=== PATIENT | female | born 1955 | race Caucasian/White ===

== ENCOUNTER 2017-07-06 05:50 | Day surgery (SDC) | payer OTHER ==
[~2017-07-06] VITALS: Ht 160 cm; Wt 72.6 kg
[~2017-07-06 05:50] MED LIST: DULOXETINE HCL30 MG PO; ESTRADIOL1 EAC6 TD; NADOLOL20 MG PO; OMEPRAZOLE20 MG PO; SUDOGEST60 MG PO; TYLENOL WITH C1 EACH PO; XANAX0.5 MG PO
--- NOTE | 2017-07-06 07:20 | NUR ---
07/06/17 0719 Abby Gamino 0716 - PT ARRIVED TO PACU. AIRWAY HELD. 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 "NO ACTION NEEDED AT THIS TIME."
== END 2017-07-06 08:10 | disposition home or self-care (01) ==
LOC: OPS 05:50 → DS 05:50 → OPS 06:45 → DS 08:30
PROVIDERS: Orthopaedic Surgery
PROC: 0RSJ0ZZ Reposition Right Shoulder Joint, Open Approach (ICD-10-PCS; principal; 2017-07-06 06:45)
DX: M75.01 Adhesive capsulitis of right shoulder (principal); I10 Essential (primary) hypertension; Z88.2 Allergy status to sulfonamides; Z88.8 Allergy status to other drugs, medicaments and biological substances
CPT/HCPCS: 01620; 64415; 76942; J0735; J2704; J3301; J7120

== ENCOUNTER 2022-11-04 06:25 | Day surgery (SDC) | payer MEDICARE ==
[~2022-11-04] VITALS: Ht 160 cm; Wt 73.5 kg
[~2022-11-04 06:25] MED LIST changes: +CYMBALTA30 MG PO; +TRAZODONE HCL100 MG PO
[2022-11-04] MEDS ORDERED: IBUPROFEN200 M1 PO (06:55)
[2022-11-04] MEDS ORDERED: ROSUVASTATIN CA10 MG PO (06:59)
[2022-11-04] MEDS ORDERED: BUSPIRONE HCL7.5 MG PO (06:59)
--- NOTE | 2022-11-04 08:25 | NUR ---
11/04/22 0825 Antoinette Carson 0863 PATIENT ARRIVES TO PACU AWAKE BUT DROWSY. DENIES PAIN OR NAUSEA. RESP EVEN AND UNLABORED, NC AT 3 LITERS, TURNED OFF. SLEEPING WHEN NOT STIMULATED.
--- NOTE | 2022-11-07 08:08 | OR ---
[facility] [address] [place], [place] [address] Signed DATE OF OPERATION: 11/04/2022 SURGEON: Mary Umana MD PREOPERATIVE DIAGNOSES: 1. Gastroesophageal reflux, symptoms generally well controlled. 2. History of diverticulosis. Last colonoscopy 2011. POSTOPERATIVE DIAGNOSES: 1. Mild distal esophagitis without sign of hiatal hernia. 2. Sigmoid diverticulosis. 3. Polyps x2 (proximal ascending colon and sigmoid). PROCEDURES: 1. Esophagogastroduodenoscopy with biopsy. 2. Total colonoscopy to the cecum with cold morcellation, excision of polyp of proximal ascending colon and sigmoid. ANESTHESIA: Intravenous sedation, fentanyl 150 mcg and Versed 9 mg (total). INDICATION: This 67-year-old white woman is a patient Dr. Ramirez and referred for colonoscopy for screening as well as upper endoscopy for symptoms of reflux. She has been treated with PPI medication persistently and doing well with it generally speaking. Previous upper endoscopy confirmed small hiatal hernia and distal esophagitis. She additionally is noted on colonoscopy in the past to have diverticulosis. She is admitted to undergo upper endoscopy and colonoscopy. She understands the risk of bleeding, infection, perforation, and other unforeseen complications. FINDINGS: Upper endoscopy was relatively normal. There is mild distal esophagitis, but no evidence of Guillermo epithelium. The flap valve appeared good. I did not see hiatal hernia, though it was documented from the past. On colonoscopy, the prep was good and complete colonoscopy was undertaken to the cecum. There were numerous diverticula of the sigmoid colon. There were two polyps, one in the proximal ascending colon, the other in the sigmoid, both were excised. DESCRIPTION OF PROCEDURE: Electronically Signed By: MARY UMANA MD 11/07/22 0808 PATIENT NAME: CHANEL SINGH OPERATIVE REPORT DATE OF : 57 REPORT #: [id number] PHYSICIAN: MARY UMANA MD PCP: DION RAMIREZ MD REPORT IS CONFIDENTIAL AND NOT TO BE RELEASED WITHOUT AUTHORIZATION [facility] [address] [place], [place] [address] Signed The patient was brought to the endoscopy suite and given topical lidocaine, hypopharyngeal anesthesia and placed in the lateral decubitus position. She was given intravenous sedation to the point of slurred speech and nystagmus with full cardiopulmonary monitoring. A bite block was placed. An Olympus video upper endoscope was passed in the hypopharynx. The vocal cords were visualized as normal. Scope was advanced to the esophagus, throughout its length it was normal though the distal portion had mild area of hyperkeratosis; there was no evidence of Guillermo epithelium or a true stricture. The scope was passed to the stomach, which was insufflated with air. Rugal folds appeared normal as did the antrum. The pylorus was normal. Scope was passed through into the duodenum, which was normal. Biopsies taken there to assess for celiac disease. The scope was withdrawn and biopsies then taken of the antrum and proximal stomach for both USMAN and pathologic testing. Retroflexed view showed a surprisingly good flap valve considering documentation in the past of small hiatal hernia. The scope was withdrawn to the distal esophagus and the hyperkeratotic area appeared benign, but was biopsied nevertheless. Scope was withdrawn and midesophageal biopsies obtained as well. The scope was then removed. Plans were made for colonoscopy. Digital rectal examination was normal. Olympus video colonoscope was passed in the rectum and manipulated throughout the colon ultimately intubating the cecum itself. The ileocecal valve and appendiceal orifice were well identified and normal. The scope was withdrawn and in the proximal ascending colon there was a small sessile polyp, almost certainly adenomatous. It was excised with cold morcellation technique. Complete excision was noted. The scope was withdrawn and examination found to be normal until the left colon where diverticula were once again noted. In the sigmoid, there was a small polyp, possibly hyperplastic, but more likely adenomatous. It was excised with cold morcellation technique as well. Further withdrawal allowed for retroflexed view of the rectum, which was normal. Scope was removed and the patient was taken to the recovery room in good condition. CONCLUDING DIAGNOSES: 1. Clinical gastroesophageal reflux with mild hyperkeratosis of the distal esophagus (biopsied). 2. Diverticulosis of colon with two small polyps. PLAN: Recommend repeat colonoscopy in 5 years based on polyps. Would recommend continued use of Prilosec on a daily basis. Safety of this approach is well documented (Barbi 2020). Electronically Signed By: MARY UMANA MD 11/07/22 0808 PATIENT NAME: CHANEL SINGH OPERATIVE REPORT DATE OF : 57 REPORT #: [id number] PHYSICIAN: MARY UMANA MD PCP: DION RAMIREZ MD REPORT IS CONFIDENTIAL AND NOT TO BE RELEASED WITHOUT AUTHORIZATION [address] [address] Signed Mary Umana MD JM/MODL /[id number] cc: Dion Ramirez MD Copies: DION RAMIREZ MD ~ Electronically Signed By: MARY UMANA MD 11/07/22 0808 PATIENT NAME: CHANEL SINGH OPERATIVE REPORT DATE OF : 57 REPORT #: [id number] PHYSICIAN: MARY UMANA MD PCP: DION RAMIREZ MD REPORT IS CONFIDENTIAL AND NOT TO BE RELEASED WITHOUT AUTHORIZATION
== END 2022-11-04 09:30 | disposition home or self-care (01) ==
LOC: DS 06:25 → OPS 06:25 → DS 07:30 → OPS 09:30
PROVIDERS: ATTEND Surgery
PROC: 0DBN8ZZ Excision of Sigmoid Colon, Via Natural or Artificial Opening Endoscopic (ICD-10-PCS; 2022-11-04)
PROC: 0DB68ZX Excision of Stomach, Via Natural or Artificial Opening Endoscopic, Diagnostic (ICD-10-PCS; principal; 2022-11-04 07:30)
PROC: 0DBK8ZZ Excision of Ascending Colon, Via Natural or Artificial Opening Endoscopic (ICD-10-PCS; 2022-11-04 07:30)
DX: Z12.11 Encounter for screening for malignant neoplasm of colon (principal); K59.09 Other constipation; K21.00 Gastro-esophageal reflux disease with esophagitis, without bleeding; K57.30 Diverticulosis of large intestine without perforation or abscess without bleeding; D12.2 Benign neoplasm of ascending colon; K63.5 Polyp of colon; K20.90 Esophagitis, unspecified without bleeding
CPT/HCPCS: 99153; G0500; J2250; J3010; J7121

== ENCOUNTER 2023-05-23 08:30 | Day surgery (SDC) | payer MEDICARE ==
[2023-05-18 10:19] VITALS: BP 125/74
[~2023-05-23] VITALS: Ht 160 cm; Wt 75.0 kg
[2023-05-23 08:18] VITALS: BP 124/48
[~2023-05-23 08:30] MED LIST changes: +BUSPIRONE HCL7.5 MG PO; +CLARITIN10 M2 PO; +IBUPROFEN200 M1 PO; +PROPRANOLOL HCL20 MG PO; +ROSUVASTATIN CA10 MG PO
--- NOTE | 2023-05-23 10:35 | NUR ---
05/23/23 Dionte5 Gina Peterson 1015- PT ARRIVES TO UNIT VIA STRETCHER FROM OR. PT RESPONSIVE TO TACTILE STIMULI AT THIS TIME. PT REPORTS NO PAIN OR NAUSEA AT THIS TIME. PT ON RA W/O2 >90% VIA PULSE OX AT THIS TIME. PT RESPIRATIONS ARE EVEN AND UNLABORED, NO SIGNS OF DISTRESS. MOUNA MARK AT BEDSIDE FOR REPORT. 1019- DR. CARRANZA AT BEDSIDE AT THIS TIME DISCUSSING PROCEDURE WITH PT.
[2023-05-23 10:50] VITALS: BP 91/46
--- NOTE | 2023-05-23 10:54 | NUR ---
1045: PT BACK TO DS RM 3 FROM PACU VIA STRETCHER, A&O X3. PT DENIES PAIN AND RATES 0/10 AND TOLERATES SIPS OF WATER. DC CRITERIA EXPLAINED, CALL LIGHT WITHIN REACH. WARM BLANKET AND JELLO PROVIDED.
[2023-05-23 11:50] VITALS: BP 116/46
--- NOTE | 2023-05-23 11:52 | NUR ---
PT RESTING IN BED WITH EYES CLOSED ON ENTRANCE, WAKES WITH VERBAL STIMULATION. PT TOLERATES PO WITH NO NAUSEA. DENIES URGE TO VOID AT THIS TIME. CALL LIGHT WITHIN REACH.
--- NOTE | 2023-05-23 14:19 | OR ---
[facility] [address] [place], [place] [address] Signed DATE OF OPERATION: 05/23/2023 SURGEON: Joby Carranza MD PREOPERATIVE DIAGNOSIS: Chronic left maxillary sinusitis. POSTOPERATIVE DIAGNOSIS: Chronic left maxillary sinusitis. PROCEDURE: Left maxillary sinusotomy. 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 PREOPERATIVE HISTORY: Ms. Chow is a 67-year-old lady with a long history of sinus problems. She has had multiple operations in the past. Most recently, left facial pain, unresponsive to appropriate medications including multiple antibiotics. The CAT scan has shown opacification of the left maxillary sinus with closure of the left nasal antral window. All other sinuses were clear on the CT scan. She was taken to the operating room for the above-mentioned procedures. OPERATIVE PROCEDURE AND FINDINGS: After informed consent, the patient was taken to the operating room, placed in the supine position where general LMA anesthesia was induced. The patient and procedure were verified. The patient received preoperative intranasal oxymetazoline and intravenous Ancef. Preop CT was reviewed throughout. The nasal cavity was inspected with the headlight and speculum. The left nasal antral window was made with a curved ring curette, widened and purulent material obtained. The nasal antral window was widened with the Raúl. All material removed from the maxillary sinus with curette and suctioning. Minimal bleeding stopped afterwards. Pharynx was suctioned clear of blood and secretions. No packing was placed. The patient was awakened, extubated, transported to recovery in good condition. No complications. BLOOD LOSS: Minimal. SPECIMEN: Electronically Signed By: JOBY CARRANZA MD 05/23/23 1419 PATIENT NAME: CHANEL CHOW OPERATIVE REPORT DATE OF : 57 REPORT #: [id number] PHYSICIAN: JOBY CARRANZA MD PCP: WILLIE MUNIZ MD REPORT IS CONFIDENTIAL AND NOT TO BE RELEASED WITHOUT AUTHORIZATION [address] [place], [place] [address] Signed Left maxillary sinus contents to pathology. DRAINS: No drains. PACKING: No packing. Joby Carranza MD GC/THANG /[id number] Copies: ~ Electronically Signed By: JOBY CARRANZA MD 05/23/23 1419 PATIENT NAME: CHANEL CHOW OPERATIVE REPORT DATE OF : 57 REPORT #: [id number] PHYSICIAN: JOBY CARRANZA MD PCP: WILLIE MUNIZ MD REPORT IS CONFIDENTIAL AND NOT TO BE RELEASED WITHOUT AUTHORIZATION
--- NOTE | 2023-05-23 14:40 | NUR ---
[id number]: PT SITS AT SIDE OF BED PRIOR TO STANDING, DENIES DIZZINESS OR NAUSEA WITH POSITION CHANGE. PT DRESSES SELF AND ENCOURAGED TO OPEN CURTAIN WHEN DONE. THIS RN PHONES PT SPOUSE FOR SAFE RIDE HOME. DC INSTRUCTIONS PRESENTED VERBALLY AND WRITTEN AND PT DS FROM DS RM 3 VIA WC TO SPOUSE IN PERSONAL VEHICLE TO HOME.
--- NOTE | 2023-05-24 05:56 | EKG ---
[facility] [address] [facility] [place], [place] [address] Signed Normal sinus rhythm Normal ECG When compared with ECG of 03-JUL-2017 16:03, No significant change was found Confirmed by DEL BAKER MD ([id number]) on 05/24/2023 5:56:26 AM Electronically Signed By: DEL BAKER 05/24/23 0556 PATIENT NAME: CHANEL SINGH Electrocardiogram DATE OF : 57 PHYSICIAN: DEL BAKER REPORT #: [id number] REPORT IS CONFIDENTIAL AND NOT TO BE RELEASED WITHOUT AUTHORIZATION
--- NOTE | 2023-05-29 09:53 | PATH ---
[facility] [address] [facility] [place], [place] [address] Signed SPECIMEN(S): A LEFT MAXILLARY SINUS CONTENTS SPECIMEN SOURCE: A. LEFT MAXILLARY SINUS CONTENTS CLINICAL HISTORY: Chronic sinusitis. FINAL PATHOLOGIC DIAGNOSIS: Left maxillary sinus contents: - Respiratory mucosa with moderate chronic inflammation - Lymphoplasmycte to eosinophil ratio is approximately 3: 1 - Moderate neutrophilic inflammation is present BRP MICROSCOPIC EXAMINATION: Histologic sections of all submitted blocks are examined by light microscopy. These findings, together with the gross examination, support the pathologic diagnosis. BRP GROSS DESCRIPTION: The specimen, labeled and designated "Garima Chow" and designated on the requisition "left maxillary sinus contents," is received in formalin and consists of one fragment of wright-pink soft tissue (0.5 x 0.3 x 0.2 cm). The specimen is submitted entirely in cassette A1. AC (under the direct supervision of a pathologist) The Gross Description was prepared using a voice recognition system. The report was reviewed for accuracy; however, sound-alike word errors, addition and/or deletions may occur. If there is any question about this report, please contact Client Services. ADDITIONAL NOTES: Immunohistochemical and/or in situ hybridization studies if performed in this case included appropriate positive controls that reacted as expected. This test was developed and its performance characteristics determined by [facility]. It has not been cleared or approved by the U.S. Food and Drug Administration. The FDA has determined that such clearance or approval is not necessary. This test is used for clinical purposes. It should not be regarded as investigational or for research. [facility] is certified under the PATIENT NAME: CHANEL CHOW PATHOLOGY DATE OF : 57 REPORT #: [id number] PHYSICIAN: NANCY FINN PCP: WILLIE MUNIZ MD REPORT IS CONFIDENTIAL AND NOT TO BE RELEASED WITHOUT AUTHORIZATION [facility] [address] [facility] [place] [address] Signed Clinical Laboratory Improvement Amendments of 1988 (CLIA) as qualified to perform high complexity clinical laboratory testing. PERFORMING LABORATORY: Technical component was performed by [facility], [address] [place] [id number] (CLIA# [id number]). Professional [facility] [address] [place] [id number] Diagnostician: Alok Sweeney MD Pathologist Electronically Signed 05/29/2023 Copies: ~ PATIENT NAME: CHANEL CHOW PATHOLOGY DATE OF : 57 REPORT #: [id number] PHYSICIAN: NANCY FINN PCP: WILLIE MUNIZ MD REPORT IS CONFIDENTIAL AND NOT TO BE RELEASED WITHOUT AUTHORIZATION
== END 2023-05-23 12:19 | disposition home or self-care (01) ==
LOC: DS 08:30
PROVIDERS: ATTEND Otolaryngology
PROC: 09J Ear, Nose, Sinus, Inspection (ICD-10-PCS; principal; 2023-05-23 09:30)
DX: J32.0 Chronic maxillary sinusitis (principal); E78.00 Pure hypercholesterolemia, unspecified
CPT/HCPCS: 00160; 80053; 85025; 88305; 93005; 93010; A9270; J0131; J0690; J1100; J2001; J2405; J2704; J3010; J7121